=== PATIENT | female | born 1965 | race Caucasian/White ===

== ENCOUNTER 2018-02-23 21:41 | Inpatient (IN) | payer BC ==
[~2018-02-23] VITALS: Ht 167.6 cm; Wt 92.1 kg
[2018-02-23] MEDS ORDERED: SODIUM CHLORIDE 0.9% 1,000 ML IV ONE (22:06)
[2018-02-23] MEDS ORDERED: ONDANSETRON HCL 4MG/2ML INJ IV STA (22:06)
[2018-02-24] VITALS (64 sets, daily range): BP systolic 64–164; BP diastolic 36–83
[2018-02-24 01:25] LABS: BASOPHILS % 0.3 % (0.0-2.0); EOSINOPHILS % 0.1 % (0.0-5.0); HEMATOCRIT. 29.5 % (36.0-48.0); LYMPHOCYTES % 8.8 % (20.0-50.0); MEAN CORPUSCULAR VOLUME 86.1 fL (81.0-99.0); MEAN PLATELET VOLUME 8.7 fl (7.4-10.4); MONOCYTES % 2.6 % (2.0-8.0); NEUTROPHILS % 88.2 % (40.0-76.0); PLATELET 267 x1000/uL (130-400); RED BLOOD CELL COUNT 3.43 mill/uL (4.2-5.4); RED CELL DISTRIBUTION WIDTH 14.1 % (11.6-14.6)
[2018-02-24 01:27] LABS: CHLORIDE 110 mEq/L (98-107)
[2018-02-24 01:29] LABS: INR 1.2; PARTIAL THROMBOPLASTIN TIME 26.3 sec (23.4-31.0); PROTHROMBIN TIME 12.4 sec (9.1-11.1)
[2018-02-24] MEDS ORDERED: SODIUM CHLORIDE 0.9% 1000ML BAG (SEPSIS BOLUS) IV ONE (01:45)
[2018-02-24] MEDS ORDERED: PANTOPRAZOLE SODIUM 40 MG/VIAL IV NR (02:15)
[2018-02-24] MEDS ORDERED: IOHEXOL-300 100 ML BOTTLE ONE ×2 (03:39→12:27)
[2018-02-24 04:27] LABS: HEMATOCRIT 21.4 % (36.0-48.0); HEMOGLOBIN 7.2 g/dL (12.0-16.0); MEAN CORPUSCULAR VOLUME 85.9 fL (81.0-99.0); PLATELET 219 x1000/uL (130-400); RED BLOOD CELL COUNT 2.49 mill/uL (4.2-5.4); RED CELL DISTRIBUTION WIDTH 14.1 % (11.6-14.6)
[2018-02-24] MEDS: DEXT 5%/0.45% NACL KCL 20MEQ/L 1,000 ML IV SCH ×2 (08:11→17:17)
[2018-02-24] MEDS: PANTOPRAZOLE 80 MG in SODIUM CHLORIDE 0.9% 100 ML IV SCH ×2 (08:11→17:17)
[2018-02-24] MEDS ORDERED: ONDANSETRON HCL 4MG/2ML INJ IV PRN (08:30)
[2018-02-24 09:22] LABS: BASOPHILS % 0.3 % (0.0-2.0); EOSINOPHILS % 0.1 % (0.0-5.0); HEMATOCRIT. 22.9 % (36.0-48.0); HEMOGLOBIN. 7.8 g/dL (12.0-16.0); LYMPHOCYTES % 17.6 % (20.0-50.0); MEAN CORPUSCULAR HEMOGLOBIN 29.2 pg (28.0-32.0); MEAN CORPUSCULAR VOLUME 86.3 fL (81.0-99.0); MEAN PLATELET VOLUME 8.6 fl (7.4-10.4); PLATELET 196 x1000/uL (130-400); RED BLOOD CELL COUNT 2.66 mill/uL (4.2-5.4); RED CELL DISTRIBUTION WIDTH 14.6 % (11.6-14.6)
[2018-02-24] MEDS ORDERED: BUPIVACAINE HCL 0.5% (5MG/ML) 50ML ONE (12:26)
[2018-02-24] MEDS ORDERED: SKIN ADHESIVE 0.7 GM EA TOP ONE (12:26)
[2018-02-24] MEDS ORDERED: SODIUM BICARBONATE 4% (2.4MEQ) 5ML VIAL IV ONE (12:27)
[2018-02-24] MEDS ORDERED: LIDOCAINE HCL 1% 20ML VIAL (Pyxis) INJ ONE ×2 (12:27→12:53)
[2018-02-24] MEDS ORDERED: PROPOFOL 200MG/20ML VIAL IV ONE (12:39)
[2018-02-24] MEDS ORDERED: MIDAZOLAM HCL 2 MG/2 ML VIAL ONE (12:44)
[2018-02-24] MEDS ORDERED: ROCURONIUM BROMIDE 10MG/ML VIAL 5ML IV ONE ×2 (12:45→15:20)
[2018-02-24] MEDS ORDERED: FENTANYL CITRATE/PF 50MCG/ML 2ML VIAL ONE (12:45)
[2018-02-24] MEDS ORDERED: SODIUM CHLORIDE 0.9% 10ML VIAL ONE (12:46)
[2018-02-24] MEDS ORDERED: METOCLOPRAMIDE HCL 10MG/2ML VIAL ONE (12:47)
[2018-02-24] MEDS ORDERED: ONDANSETRON HCL 4MG/2ML INJ ONE (12:47)
[2018-02-24] MEDS ORDERED: CEFAZOLIN SODIUM 1000MG/VIAL ONE (13:25)
[2018-02-24] MEDS ORDERED: VALS1TAB6 PO (14:10)
[2018-02-24] MEDS ORDERED: METHYLENE BLUE 50 MG/10 ML AMP IV ONE (14:15)
[2018-02-24] MEDS ORDERED: PHENYLEPHRINE HCL 10 MG/ML 1ML (IV VIAL) IV ONE (14:17)
[2018-02-24 14:23] LABS: HEMATOCRIT 25.4 % (36.0-48.0); HEMOGLOBIN 8.8 g/dL (12.0-16.0)
[2018-02-24 14:33] LABS: INR 1.4; PROTHROMBIN TIME 13.8 sec (9.1-11.1)
[2018-02-24] MEDS ORDERED: ETOMIDATE 2MG/ML 10ML VIAL IV ONE ×2 (14:47→15:20)
[2018-02-24] MEDS ORDERED: BUPIVACAINE HCL 0.5% 125 ML in ON-Q PM012 DRUG DELIV DEVICE 1 EA IR STA (15:46)
[2018-02-24] MEDS ORDERED: DOPAMINE 400MG PREMIX 250 ML IV PRN (16:15)
[2018-02-24] MEDS ORDERED: DOPAMINE 400MG PREMIX 250 ML IV ONE (16:29)
[2018-02-24 18:12] LABS: BG BASE EXCESS -7.5 mmol/L (-2.0-2.0); BG CARBOXYHEMOGLOBIN 0.3 % (0.5-1.5); BG DEOXYHEMOGLOBIN 1.2 % (0.0-5.0); BG FRACTION INSPIRED OXYGEN 100; BG HCO3 ACT 17.4 mmol/L (22.0-26.0); BG METHEMOGLOBIN 0.3 % (0.0-1.5); BG OXYGEN SATURATION 98.8 % (92.0-98.5); BG OXYHEMOGLOBIN 98.2 % (94.0-97.0); BG PCO2 33.2 mmHg (35.0-45.0); BG PH 7.337 (7.350-7.450); BG PO2 208.3 mmHg (75.0-100.0); BG PRESSURE SUPPORT 10; BG SAMPLE SITE RIGHT RADIAL; BG TIDAL VOLUME(mL) 500 mL; BG TOTAL HEMOGLOBIN 10.8 g/dL (12.0-18.0); BG VENT MODE VENT - SIMV; BG VENT RATE 10 set
[2018-02-24 18:49] LABS: HEMOGLOBIN. 9.7 g/dL (12.0-16.0); MEAN CORPUSCULAR HEMOGLOBIN 30.6 pg (28.0-32.0); MEAN CORPUSCULAR VOLUME 87.9 fL (81.0-99.0); PLATELET 124 x1000/uL (130-400); RED BLOOD CELL COUNT 3.19 mill/uL (4.2-5.4); RED CELL DISTRIBUTION WIDTH 14.7 % (11.6-14.6)
[2018-02-24 18:53] LABS: CHLORIDE 117 mEq/L (98-107)
[2018-02-24 19:22] LABS: PLATELET ESTIMATE DECREASED
[2018-02-24 19:30] LABS: CLARITY URINE CLEAR (CLEAR); COLOR URINE YELLOW (YELLOW); KETONES URINE NEGATIVE (NEGATIVE); LEUKOCYTE ESTERASE URINE NEGATIVE (NEGATIVE); NITRITE URINE NEGATIVE (NEGATIVE); OCCULT BLOOD URINE NEGATIVE (NEGATIVE); PROTEIN URINE NEGATIVE (NEGATIVE); SPECIFIC GRAVITY URINE 1.017 (1.005-1.030); UROBILINOGEN URINE 0.2 E.U./dL (0.2-1.0)
[2018-02-24 19:47] LABS: *BARBITURATES SCREEN URINE NEGATIVE (NEGATIVE)
[2018-02-24 19:48] LABS: *AMPHETAMINES SCREEN URINE NEGATIVE (NEGATIVE); *BENZODIAZEPINES SCREEN URINE PRESUMTIVE POSITIVE (NEGATIVE); *COCAINE SCREEN URINE NEGATIVE (NEGATIVE); METHADONE URINE SCREEN NEGATIVE (NEGATIVE); OPIATES URINE SCREEN NEGATIVE (NEGATIVE); PHENCYCLIDINE URINE SCREEN NEGATIVE (NEGATIVE)
[2018-02-24 19:49] LABS: CANNABINOID URINE SCREEN NEGATIVE (NEGATIVE)
[2018-02-24] MEDS ORDERED: PANTOPRAZOLE SODIUM 40 MG/VIAL IV SCH (21:00)
[2018-02-25] VITALS (56 sets, daily range): BP systolic 100–146; BP diastolic 42–87
[2018-02-25] MEDS: DEXT 5%/0.45% NACL KCL 20MEQ/L 1,000 ML IV SCH ×3 (01:05→20:23)
[2018-02-25] MEDS: PANTOPRAZOLE 80 MG in SODIUM CHLORIDE 0.9% 100 ML IV SCH ×2 (01:05→12:22)
[2018-02-25 06:12] LABS: BASOPHILS % 0.3 % (0.0-2.0); EOSINOPHILS % 0.1 % (0.0-5.0); HEMATOCRIT. 23.8 % (36.0-48.0); HEMOGLOBIN. 8.2 g/dL (12.0-16.0); LYMPHOCYTES % 11.8 % (20.0-50.0); MEAN CORPUSCULAR HEMOGLOBIN 30.2 pg (28.0-32.0); MEAN CORPUSCULAR VOLUME 88.5 fL (81.0-99.0); MEAN PLATELET VOLUME 8.7 fl (7.4-10.4); NEUTROPHILS % 77.8 % (40.0-76.0); PLATELET 111 x1000/uL (130-400); RED BLOOD CELL COUNT 2.69 mill/uL (4.2-5.4); RED CELL DISTRIBUTION WIDTH 14.9 % (11.6-14.6)
[2018-02-25 06:32] LABS: CHLORIDE 115 mEq/L (98-107)
[2018-02-25 11:55] LABS: HEMATOCRIT 25.6 % (36.0-48.0); HEMOGLOBIN 8.9 g/dL (12.0-16.0)
[2018-02-25] MEDS ORDERED: HYDROMORPHONE HCL/PF 2MG/ML CPJ IV PRN ×2 (15:30→18:45)
[2018-02-25 16:58] LABS: HEMATOCRIT 24.5 % (36.0-48.0); HEMOGLOBIN 8.6 g/dL (12.0-16.0)
[2018-02-25 20:46] LABS: HEMATOCRIT 24.6 % (36.0-48.0); HEMOGLOBIN 8.7 g/dL (12.0-16.0)
[2018-02-26] VITALS (24 sets, daily range): BP systolic 120–149; BP diastolic 68–94
[2018-02-26] MEDS: DEXT 5%/0.45% NACL KCL 20MEQ/L 1,000 ML IV SCH ×4 (03:53→23:13)
[2018-02-26 05:31] LABS: BASOPHILS % 0.4 % (0.0-2.0); EOSINOPHILS % 0.3 % (0.0-5.0); HEMATOCRIT. 24.6 % (36.0-48.0); HEMOGLOBIN. 8.6 g/dL (12.0-16.0); LYMPHOCYTES % 12.3 % (20.0-50.0); MEAN CORPUSCULAR HEMOGLOBIN 30.9 pg (28.0-32.0); MEAN CORPUSCULAR VOLUME 88.1 fL (81.0-99.0); MEAN PLATELET VOLUME 8.6 fl (7.4-10.4); MONOCYTES % 8.4 % (2.0-8.0); NEUTROPHILS % 78.6 % (40.0-76.0); PLATELET 107 x1000/uL (130-400); RED BLOOD CELL COUNT 2.79 mill/uL (4.2-5.4); RED CELL DISTRIBUTION WIDTH 14.3 % (11.6-14.6)
[2018-02-26 06:19] LABS: CHLORIDE 110 mEq/L (98-107)
[2018-02-26] MEDS ORDERED: LIDOCAINE HCL 1% 20ML VIAL (Pyxis) INJ ONE (09:57)
[2018-02-26] MEDS ORDERED: SODIUM BICARBONATE 4% (2.4MEQ) 5ML VIAL IV ONE (09:57)
[2018-02-26] MEDS: PANTOPRAZOLE SODIUM 40 MG/VIAL IV SCH (12:01)
[2018-02-26 20:01] LABS: HEMATOCRIT 29.1 % (36.0-48.0); HEMOGLOBIN 9.9 g/dL (12.0-16.0)
[2018-02-27] VITALS (27 sets, daily range): BP systolic 117–155; BP diastolic 49–107
[2018-02-27] MEDS: DEXT 5%/0.45% NACL KCL 20MEQ/L 1,000 ML IV SCH ×2 (04:51→07:46)
[2018-02-27 05:27] LABS: BASOPHILS % 0.4 % (0.0-2.0); EOSINOPHILS % 0.5 % (0.0-5.0); HEMATOCRIT. 23.2 % (36.0-48.0); HEMOGLOBIN. 8.2 g/dL (12.0-16.0); LYMPHOCYTES % 7.8 % (20.0-50.0); MEAN CORPUSCULAR HEMOGLOBIN 31.4 pg (28.0-32.0); MEAN CORPUSCULAR VOLUME 88.7 fL (81.0-99.0); MEAN PLATELET VOLUME 8.8 fl (7.4-10.4); MONOCYTES % 5.8 % (2.0-8.0); NEUTROPHILS % 85.5 % (40.0-76.0); PLATELET 131 x1000/uL (130-400); RED BLOOD CELL COUNT 2.62 mill/uL (4.2-5.4); RED CELL DISTRIBUTION WIDTH 14.4 % (11.6-14.6)
[2018-02-27 05:28] LABS: CHLORIDE 108 mEq/L (98-107)
[2018-02-27] MEDS: PANTOPRAZOLE SODIUM 40 MG/VIAL IV SCH (09:12)
[2018-02-28] VITALS: BP 118/74
[2018-02-28 04:00] VITALS: BP 120/70
[2018-02-28 08:00] VITALS: BP 133/84
[2018-02-28] MEDS: PANTOPRAZOLE SODIUM 40 MG/VIAL IV SCH (10:29)
[2018-02-28 10:45] LABS: BASOPHILS % 0.6 % (0.0-2.0); EOSINOPHILS % 2.2 % (0.0-5.0); HEMATOCRIT. 24.8 % (36.0-48.0); HEMOGLOBIN. 8.7 g/dL (12.0-16.0); MEAN CORPUSCULAR HEMOGLOBIN 31.1 pg (28.0-32.0); MEAN PLATELET VOLUME 8.5 fl (7.4-10.4); MONOCYTES % 7.8 % (2.0-8.0); NEUTROPHILS % 71.4 % (40.0-76.0); PLATELET 185 x1000/uL (130-400); RED BLOOD CELL COUNT 2.79 mill/uL (4.2-5.4); RED CELL DISTRIBUTION WIDTH 14.6 % (11.6-14.6)
[2018-02-28 11:53] VITALS: BP 146/106
[2018-02-28 12:00] VITALS: BP 146/106
== END 2018-02-28 12:55 | disposition home or self-care (01) | DRG 329 ==
LOC: ER 21:41 → EDBEDREQDT 02-24 02:17 → EDBEDREQ 02-24 02:17 → EDBEDREQTM 02-24 02:17 → CVICU 02-24 04:18 → EDBEDREQSVC 02-24 04:32 → EDBEDREQTM 02-24 04:32 → ENRESERV 02-24 05:33 → 5WST 02-27 23:55
PROVIDERS: ADMIT Internal Medicine; ATTEND Internal Medicine
PROC: 30233L1 Transfusion of Nonautologous Fresh Plasma into Peripheral Vein, Percutaneous Approach (ICD-10-PCS; 2018-02-24)
PROC: 30233N1 Transfusion of Nonautologous Red Blood Cells into Peripheral Vein, Percutaneous Approach (ICD-10-PCS; 2018-02-24)
PROC: 30233R1 Transfusion of Nonautologous Platelets into Peripheral Vein, Percutaneous Approach (ICD-10-PCS; 2018-02-24)
PROC: 30233K1 Transfusion of Nonautologous Frozen Plasma into Peripheral Vein, Percutaneous Approach (ICD-10-PCS; 2018-02-24)
PROC: B4141ZZ Fluoroscopy of Superior Mesenteric Artery using Low Osmolar Contrast (ICD-10-PCS; 2018-02-24)
PROC: 0DB80ZZ Excision of Small Intestine, Open Approach (ICD-10-PCS; principal; 2018-02-24 12:30)
DX: K55.21 Angiodysplasia of colon with hemorrhage (principal); N17.0 Acute kidney failure with tubular necrosis; E44.1 Mild protein-calorie malnutrition; E87.2 Acidosis; D17.71 Benign lipomatous neoplasm of kidney; D64.9 Anemia, unspecified; E66.9 Obesity, unspecified; E87.8 Other disorders of electrolyte and fluid balance, not elsewhere classified; I10 Essential (primary) hypertension; K80.20 Calculus of gallbladder without cholecystitis without obstruction; Z80.0 Family history of malignant neoplasm of digestive organs; Z83.71 Family history of colonic polyps; Z90.49 Acquired absence of other specified parts of digestive tract; Z79.899 Other long term (current) drug therapy; Z68.32 Body mass index [BMI] 32.0-32.9, adult
CPT/HCPCS: 31500; 36415; 36600; 71045; 74177; 75726; 75774; 76000; 76937; 78278; 80048; 80305; 82375; 82378; 82805; 83036; 83605; 85007; 85014; 85018; 85027; 85049; 85384; 86850; 86900; 86920; 86927; 87070; 87493; 88309; 88329; 93005; 94002; 96374; 96375; 99291; A4216; A9560; C1730; C1757; C1760; C1766; C1769; C9113; J0690; J1170; J1265; J1644; J2250; J2370; J2405; J2704; J2765; J3010; J3490; J7030; J7040; J7050; P9016; P9017; P9034; Q9967; Q9968